=== PATIENT | female | born 1960 | race Caucasian/White ===

== ENCOUNTER → 2016-05-12 | Outpatient (CLI) | payer OTHER | LOC: FIMAGING 14:02 | PROVIDERS: ATTEND Internal Medicine Infectious Disease | DX: J34.89 Other specified disorders of nose and nasal sinuses (principal); R05 Cough; R50.9 Fever, unspecified; R53.81 Other malaise; M51.34 Other intervertebral disc degeneration, thoracic region ==

== ENCOUNTER → 2016-12-11 | Outpatient (CLI) | payer OTHER ==
[~2016-12-11] MED LIST: IOPAMIDOL (ISOVUE-300) 100 ML BTL ONE
== END ==
LOC: FIMAGING 11:17
PROVIDERS: ATTEND Internal Medicine
DX: R50.9 Fever, unspecified (principal)
CPT/HCPCS: Q9967

== ENCOUNTER → 2017-06-04 | Outpatient (CLI) | payer OTHER | LOC: FIMAGING 16:32 → FLAB 16:32 → EDSTATUS 16:36 | PROVIDERS: ATTEND Internal Medicine | DX: J40 Bronchitis, not specified as acute or chronic (principal); R05 Cough ==

== ENCOUNTER → 2018-02-18 | Outpatient (CLI) | payer OTHER | LOC: BMCIMAGING 14:48 | PROVIDERS: ATTEND Internal Medicine | DX: Z12.31 Encounter for screening mammogram for malignant neoplasm of breast (principal) ==